=== PATIENT | female | born 1995 | race Caucasian/White ===

== ENCOUNTER 2024-01-09 09:33 | Inpatient (IN) ==
[2024-01-09] MEDS ORDERED: Nalbuphine 10 MG/ML 1 ML VIAL IV PRN (10:29)
[2024-01-09 10:43] LABS: ABS Lymphocytes 1.8 10^3/uL (1.0-4.8); ABS Monocytes 0.6 10^3/uL (0.0-0.9); ABS Neutrophils 15.1 10^3/uL (1.5-7.6); Eosinophil % 0.1 %; Hematocrit 34.9 % (35-45); Hemoglobin 11.9 g/dL (11.5-14.3); Lymphocyte % 10.2 %; Mean Corpuscular Hemoglobin 28.6 pg (27-33); Mean Corpuscular Hgb Conc 34.1 g/dL (31-36); Mean Corpuscular Volume 83.9 fL (80-97); Mean Platelet Volume 7.9 fL (7.5-11.2); Platelet Count 243 10^3/uL (150-450); Red Blood Count 4.17 10^6/uL (3.63-4.92); Red Cell Distribution Width 14.1 % (12-17); White Blood Count 17.6 10^3/uL (3.8-11.8)
[2024-01-09] MEDS: Lactated Ringers 1000 ml BAG 1,000 ML IV ONE (10:44)
[2024-01-09 11:56] LABS: Urine Benzodiazepine Screen None Detected (None Detect); Urine Cannabinoids Screen None Detected (None Detect); Urine Opiates Screen None Detected (None Detect)
[2024-01-09] MEDS: Lactated Ringers 1000 ml BAG 1,000 ML IV SCH (13:09)
[2024-01-09] MEDS: OBEPIDURAL (200 ML) 200 ML EPIDURAL ONE (13:54)
[2024-01-09] MEDS: Oxytocin in LR 20,000 MILLI.UNIT/1,000 ML BAG IV SCH (16:36)
[2024-01-09] MEDS ORDERED: Phenylephrine 40 mcg/mL 10mL (400mcg) SYRINGE IV PUSH PRN ×2 (17:30)
[2024-01-09] MEDS ORDERED: Sodium Citrate/Citric Acid LIQ 15 ML UDC PO PRN (17:30)
[2024-01-09] MEDS: Ondansetron 4 mg VIAL 2 MG/ML 2 ml VIAL IV PRN (19:52)
[2024-01-09] MEDS: Lidocaine 1% VIAL 10 MG/ML 30 ML VIAL INJ PRN (22:20)
[2024-01-09] MEDS: Methylergonovine 0.2 mg AMPULE 1 ml AMP ONE (22:34)
[2024-01-09] MEDS: Ondansetron 4 mg VIAL 2 MG/ML 2 ml VIAL ONE (22:36)
[2024-01-09] MEDS: Prochlorperazine 5 mg/ml 2 ml VIAL (10 mg) IV PRN (22:58)
[2024-01-10] MEDS: Lidocaine 1.5% EPI 1:200,000 30 ML SDV ONE (01:53)
[2024-01-10] MEDS: OBEPIDURAL (200 ML) 200 ML EPIDURAL SCH (02:06)
[2024-01-10] MEDS ORDERED: Glycerin ADULT 2.4 gm SUPP PR PRN (02:21)
[2024-01-10] MEDS: Methylergonovine 0.2 mg AMPULE 1 ml AMP IM ONE (02:45)
[2024-01-10] MEDS ORDERED: Lactated Ringers 1000 ml BAG 1,000 ML IV SCH (03:00)
[2024-01-10] MEDS: Buffered Lidocaine 1% SYRIN 1 ml INTRADERM ONE (07:27)
[2024-01-10] MEDS: Lactated Ringers 1000 ml BAG 1,000 ML IV ONE (07:27)
[2024-01-10] MEDS: Lactated Ringers 1000 ml BAG 1,000 ML IV SCH (07:27)
[2024-01-10] MEDS: Oxytocin in LR 20,000 MILLI.UNIT/1,000 ML BAG IV SCH (07:27)
[2024-01-10] MEDS: Phenylephrine 40 mcg/mL 10mL (400mcg) SYRINGE ONE (07:27)
[2024-01-10 10:04] LABS: ABS Eosinophils 0.1 10^3/uL (0.0-0.5); ABS Lymphocytes 2.4 10^3/uL (1.0-4.8); ABS Monocytes 1.4 10^3/uL (0.0-0.9); ABS Neutrophils 16.2 10^3/uL (1.5-7.6); ABS Nucleated RBC 0.01 10^3/ul; Eosinophil % 0.3 %; Hematocrit 29.7 % (35-45); Hemoglobin 10.2 g/dL (11.5-14.3); Lymphocyte % 11.9 %; Mean Corpuscular Hemoglobin 28.8 pg (27-33); Mean Corpuscular Hgb Conc 34.2 g/dL (31-36); Mean Corpuscular Volume 84.2 fL (80-97); Mean Platelet Volume 7.8 fL (7.5-11.2); Nucleated Red Blood Cells % 0.1 %/100WBC (0.0-0.8); Platelet Count 191 10^3/uL (150-450); Red Blood Count 3.53 10^6/uL (3.63-4.92); Red Cell Distribution Width 13.7 % (12-17); White Blood Count 20.1 10^3/uL (3.8-11.8)
[2024-01-11 08:27] VITALS: BP 104/70
[2024-01-11] MEDS: Witch Hazel PAD JAR TOPICAL PRN (08:56)
[2024-01-11] MEDS: Dibucaine 1% OINT 28.35 GM TUBE PR PRN (08:56)
[2024-01-11] MEDS: Influenza Vaccine *TRI* 2024-25* 0.5 ML SYRINGE IM ONE (17:46)
[2024-01-12] MEDS ORDERED: Influenza Vaccine *TRI* 2024-25* 0.5 ML SYRINGE IM ONE (09:00)
== END 2024-01-11 18:00 | disposition home or self-care (01) | DRG 560 ==
LOC: MCHOBOUT 09:33 → MCHOB 09:41
PROVIDERS: ADMIT Advanced Practice Midwife; ATTEND Advanced Practice Midwife